=== PATIENT | female | born 1945 | race Caucasian/White ===

== ENCOUNTER 2024-08-25 07:17 | Day surgery (SDC) | payer OTHER ==
[~2024-08-25] VITALS: Ht 152.4 cm; Wt 81.3 kg
[~2024-08-25 07:17] MED LIST: ALBU18HF12 IH; ALEN70TA80 PO; AMLO10TA55 PO; ASPI-1444 PO; ATOR20TA65 PO; AZEL137S8 NASAL; BISO5TAB13 PO; CHOL200074 PO; DORZ10DR10 OU; KETO120S13 TP; LATA2.5D14 OU; METF-445 PO; MONT-40 PO; OMEP40CA21 PO; OS500 PO; POTA8TAB72 PO; PROP10DR15 OU; SODIUM CHLORIDE 0.9% 1,000 ML ONE; TIOT4MIS2 IH
[2024-08-25] MEDS ORDERED: MIDAZOLAM HCL 2 MG/2 ML VIAL ONE (07:55)
[2024-08-25] MEDS ORDERED: FentaNYL CITRATE PF 100 MCG/2 ML VIAL ONE (07:55)
[2024-08-25] MEDS: SODIUM CHLORIDE 0.9% 1,000 ML IV ONE (08:22)
[2024-08-25 09:01] LABS: GLUCOMETER DEV NAME(LOC) SDS.; GLUCOSE,POINT OF CARE 102 MG/DL (70-110)
[2024-08-25 09:35] VITALS: PULSE 69; RESP 20; O2SAT 96
[2024-08-25] MEDS ORDERED: MethylPREDNISolone SOD SUCC 125 MG/2 ML VIAL ONE (10:15)
[2024-08-25] MEDS: MethylPREDNISolone SOD SUCC 125 MG/2 ML VIAL IVP ONE (10:17)
[2024-08-25] MEDS ORDERED: LIDOCAINE 2% 11 ML JELLY ONE (12:00)
[2024-08-25] MEDS ORDERED: LIDOCAINE 4% 50 ML SOLUTION ONE (12:00)
[2024-08-25] MEDS ORDERED: ALBUTEROL SULFATE 2.5 MG/0.5 ML NEB SOLUTION NEB ONE (12:00)
[2024-08-25] MEDS ORDERED: BENZOCAINE 20% 50 MCG/SPRAY 57 GM ONE (12:00)
== END 2024-08-25 14:45 | disposition left against medical advice (07) ==
LOC: SURGERY 07:17
PROVIDERS: ATTEND Internal Medicine Critical Care Medicine
DX: R05.3 Chronic cough (principal); I10 Essential (primary) hypertension; E11.9 Type 2 diabetes mellitus without complications; R04.2 Hemoptysis; J98.09 Other diseases of bronchus, not elsewhere classified; J84.10 Pulmonary fibrosis, unspecified; J98.8 Other specified respiratory disorders
CPT/HCPCS: 31623; 31624; 71045; 82962; 87015; 87070; 87101; 87206; 87220; 88108; 94760; J2250; J2919; J3010; J7030; J7613; Z7610